=== PATIENT | male | born 1955 | race Caucasian/White ===

== ENCOUNTER → 2017-03-11 | Day surgery (SDC) | payer OTHER ==
[~2017-03-11] MED LIST: ASPI-482 PO; ATOR20TA58 PO; CHOL20004 PO; IV RINGERS,LACTATED 1000ML 1,000 ML IV SCH; METO25TA4 PO; MULT-496 PO; OXYC-323 PO; PROPOFOL 20 ML IV ONE; RANI150T6 PO
--- NOTE | 2017-03-11 13:56 | PDOC1 ---
History and Physical Date of Admission Date of Admission DATE: 03/11/17 TIME: 13:52 Source Source: Chart review, Patient History of Present Illness History of Present Illness 61 y/o male with blood in stool. H/o polyps; last exam 2010. No GI FH. Otherwise no GI complaints. Past Medical History Cardiovascular: CAD, HTN, Hyperlipidemia Past Surgical History Past Surgical History: Cholecystectomy, Hernia Repair, Other (coronary stent) Family History Family History: Diabetes Social History Smoke: No ALCOHOL: none Current Medications Current Medications Current Medications Ringer's Solution 1,000 ml @ 50 mls/hr Q20H IV Last administered on 03/11/17t 13:31; Start 03/11/17 at 07:00; Stop 03/11/17 at 18:59 Propofol 20 ml @ As Directed STK-MED ONCE IV ; Start 03/11/17 at 13:49; Stop 03/11 at 13:50; Status DC Active Scripts Active Reported Daily Value (Multivitamin) 1 Each Tablet 1 Each PO DAILY Vitamin D-3 (Cholecalciferol (Vitamin D3)) 2,000 Unit Capsule 2,000 Unit PO DAILY Aspir 81 (Aspirin) 81 Mg Tablet.dr 1 Tab PO DAILY Atorvastatin Calcium 20 Mg Tablet 1 Tab PO HS Metoprolol Tartrate 25 Mg Tablet 1 Tab PO DAILY Allergies Allergies: Coded Allergies: ticagrelor (Verified Allergy, Intermediate, Hives, 03/11/17) ROS Review of System Otherwise negative. Physical Exam General: Alert, Oriented X3, Cooperative, No acute distress Lungs: Clear to auscultation Heart: S1S2, RRR, no gallops, no murmurs Abdomen: Normal bowel sounds, Soft, No tenderness, No hepatosplenomegaly, No masses Rectal Exam: deferred Extremities: No cyanosis, No edema Skin: No significant lesion Neuro: Normal speech, Strength at 5/5 X4 ext, Normal tone, Sensation intact, Cranial nerves 3-12 NL, Reflexes 2+ Psych/Mental Status: Mental status NL, Mood NL Vitals Vitals Vital Signs Date Time Temp Pulse Resp B/P (MAP) Pulse Ox O2 Delivery O2 Flow Rate FiO2 03/11/17 13:28 98.4 51 20 98 98.4 VTE Prophylaxis Ordered VTE Prophylaxis Devices: No VTE Pharmacological Prophylaxi: No Assessment/Plan Assessment/Plan IMP: H/o polyps/rectal bleeding Plan; colonoscopy. DENZEL HILLMAN MD Mar 11, 2017 13:56
--- NOTE | 2017-03-11 14:16 | PDOC4 ---
PROCEDURE Procedure Colonoscopy Ind: H/o polyps, last 2010/blood in stool Meds: per anesthesia Findings: Diverticulosis, sigmoid, multiple. Internal hemorrhoids. Otherwise normal exam to cecum. Moreno. well. IMP: Hemorrhoids likely source of bleed. diverticulosis. REC: Reassure. No treatment needed for the hemorrhoids in absence of pain. Can f/u with us prn. Repeat exam in 5 years. DENZEL HILLMAN MD Mar 11, 2017 14:16
[2017-03-11 14:35] VITALS: BP 105/74
== END | disposition home or self-care (01) ==
LOC: ENDOS 12:56
PROVIDERS: ATTEND Internal Medicine Gastroenterology
DX: Z09 Encounter for follow-up examination after completed treatment for conditions other than malignant neoplasm (principal); Z86.010 Personal history of colon polyps; K64.8 Other hemorrhoids; K57.30 Diverticulosis of large intestine without perforation or abscess without bleeding; I25.10 Atherosclerotic heart disease of native coronary artery without angina pectoris; E78.00 Pure hypercholesterolemia, unspecified; K21.9 Gastro-esophageal reflux disease without esophagitis; F41.9 Anxiety disorder, unspecified
CPT/HCPCS: 45378; J2704